=== PATIENT | male | born 1965 | race Caucasian/White ===

== ENCOUNTER 2017-05-18 15:47 | Emergency (ER) | payer OTHER ==
[~2017-05-18] VITALS: Ht 172.7 cm; Wt 102.1 kg
[2017-05-18] MEDS ORDERED: HYDROCODONE-AP1 EAC6 PO (16:55)
== END 2017-05-18 17:00 | disposition home or self-care (01) ==
LOC: ER 15:47
DX: M25.562 Pain in left knee (principal); Z90.49 Acquired absence of other specified parts of digestive tract; Z88.0 Allergy status to penicillin